=== PATIENT | female | born 1995 | race Caucasian/White ===

== ENCOUNTER 2019-06-21 12:13 | Emergency (ER) | payer SELFPAY ==
[2019-06-21 12:16] VITALS: BP 96/62; PULSE 81; RESP 15; TEMP 36.4; O2SAT 97
--- NOTE | 2019-06-21 12:31 | ED.GENADUL_ITS ---
Discharge Plan Disposition Patient Disposition: HOME Condition: Stable Discharge Details Chief Complaint: Orthopedic Clinical Impression: Contusion of right foot Primary Care Provider: None,None ED Provider: Amanda Young Home Meds and New Rx's Prescriptions: No Action multivitamin Tablet 1 tab PO DAILY RF: 0 Discharge Instructions Instructions: Foot Contusion (ED) Additional Instructions: Rest, ice, and elevate the affected area as much as possible. Alternate tylenol and motrin as needed and directed for pain. Follow up with your primary care doctor in 1 week as needed. Return to the emergency department with any worsening or new concerning symptoms. Discharge Data Discharge Physician: Amanda Young Medical Decision Making 23-year-old female presents with right foot pain after a [employer] lift at work to run over her right foot this morning. She has an area a contusion noted to the right medial midfoot. No obvious deformity noted. Neurovascular intact. Normal right ankle exam. Patient denies chance of . Given a dose of ibuprofen. Xray negative. Mariano wrap given. Patient advised on the importance of RICE. Advised to follow up with the primary care doctor for re-evaluation as needed. Usual and customary return precautions given prior to discharge. Medical Records Medical records reviewed: Yes I reviewed the patient's medical records. Imaging Data Radiologic Study: Radiologist's impression: XR FOOT RT COMPLETE INDICATION: hover lift ran over mid foot. COMPARISON: No exams were available for comparison TECHNIQUE: 2D digital imaging was performed. FINDINGS: No fracture or dislocation is seen. IMPRESSION: Negative right foot. HPI General Mode of arrival: ambulatory . Date/Time Provider Initiated Documentation: 06/21/19 12:27 . Limitations to Documentation: no limitations . Information obtained by: patient . History of Present Illness 23 year old F presents to the emergency department with the chief complaint of Foot pain , and is localized to the right and lower extremity (Foot). Patient started experiencing this minute(s) (90) and it has been constant. Rest improves symptom(s), Movement worsens symptoms . Patient notes no other symptoms.. Patient did receive the following treatments prior to arrival, none Related Data Home Medications Medication Instructions Recorded Confirmed multivitamin 1 tab PO DAILY 06/21/19 06/21/19 Allergies Allergy/AdvReac Type Severity Reaction Status Date / Time No Known Allergies Allergy Unverified 06/21/19 12:19 General Stated Complaint: Orthopedic ROSEY: 4 Review of Systems All systems reviewed & are unremarkable except as noted in HPI and below PFSH Social History Smoking/Tobacco Use Status: Current every day Tobacco Type: cigarettes Years smoked: 3 Alcohol Intake: never Drug use: Never Substance use type: does not use Do you feel safe at home: Yes Do you feel safe in your relationship?: Yes Exam Const General: cooperative, healthy appearing and no acute distress HENMT Head: normal to inspection Mouth: oral mucosae normal Eyes General: appearance normal, both eyes and all related structures Neck Neck: normal visual inspection Resp Effort & Inspection: normal respiratory effort and able to speak in complete sentences Cardio Rate: regular rate Skin General skin exam: no rashes or lesions noted Neuro General: alert, awake and oriented x3 Motor: muscle tone normal throughout Sensory Exam: no sensory deficits noted Extrem Ankle/foot/toe images: 1. Area of mild to moderate edema and ecchymosis noted to right mid medial foot. No open wounds, erythema, crepitus noted. Remainder foot nontender. Other: No tenderness to palpation of right medial or lateral malleolus. Psych Appearance: grossly normal Affect: normal affect Course Vital Signs Vital signs: Vital Signs Temperature 97.5 F L 06/21/19 12:16 Pulse 81 06/21/19 12:16 Respiratory Rate 105 H 06/21/19 12:16 Blood Pressure 96/62 L 06/21/19 12:16 Pulse Oximetry 97 06/21/19 12:16 Temperature 97.5 F L 06/21/19 12:16 Temperature Source Skin 06/21/19 12:16 Pulse 81 06/21/19 12:16 Respiratory Rate 105 H 06/21/19 12:16 Respiratory Effort Non-Labored 06/21/19 12:16 Blood Pressure 96/62 L 06/21/19 12:16 Blood Pressure Position Sitting 06/21/19 12:16 Pulse Oximetry 97 06/21/19 12:16 Oxygen Delivery Method Room Air 06/21/19 12:16 Oxygen Flow Rate 0 06/21/19 12:16 Pain Level 7 06/21/19 12:16
[2019-06-21] MEDS: Ibuprofen 600 MG TAB PO (12:50)
--- NOTE | 2019-06-21 13:05 | DI.RAD_ITS ---
EXAM: XR FOOT RT COMPLETE INDICATION: hover lift ran over mid foot. COMPARISON: No exams were available for comparison TECHNIQUE: 2D digital imaging was performed. FINDINGS: No fracture or dislocation is seen. IMPRESSION: Negative right foot.
== END 2019-06-21 13:42 | disposition home or self-care (01) ==
PROVIDERS: Emergency Provider Physician Assistant
DX: S90.31XA Contusion of right foot, initial encounter (principal); W24.0XXA Contact with lifting devices, not elsewhere classified, initial encounter; Y99.0 Civilian activity done for income or pay
CPT/HCPCS: 99283; 73630